=== PATIENT | female | born 1950 | race Caucasian/White ===

== ENCOUNTER 2017-08-27 14:22 | Emergency (ER) | payer MEDICARE ==
--- NOTE | 2017-08-27 15:28 | ED Physician Chart ---
ED Chief Complaint/HPI - Patient Information Date Seen:: 08/27/17 Time Seen:: 15:24 Chief Complaint:: Left leg pain History of Present Illness:: 67 yo female had sudden onset of left buttock and left leg pain today 4 hours prior to ER visit. No numbness or tingling. No urinary or fecal incontinence. No fever. She had history of chronic low back pain. She slept on an air mattress at a friend's house last night. ED Review of Systems - Review of Systems General/Constitutional: No fever Skin: No skin lesions Head: No headache Eyes: No pain ENT: No nasal drainage Neck: Neck pain Cardio Vascular: No chest pain Pulmonary: No SOB GI: No nausea, No vomiting Musculoskeletal: Other (left leg pain) Neurological: No weakness ED Past Medical History - Past Medical History Past Medical History: PUD/GERD, Other (low back pain, neck pain) Social History: Non Smoker, No Alcohol, No Drug Use Surgical History: ED Physical Exam - Physical Examination General/Constitutional: Awake Head: Atraumatic Eyes: PERRL Skin: No skin lesions ENMT: Nasal exam nl Neck: No nuchal rigidity Respiratory: No Wheeze/Rhonchi/Rales Cardio Vascular: RRR, No murmur, gallop, rubs, NL S1 S2 GI: No tenderness/rebounding/guarding Other Extremities comments:: left popliteal tenderness, possible left EHL weakness Neuro/Psych: Alert/oriented, No focal deficits ED Labs/Radiology/EKG Results - Lab Results Results: Laboratory Last Values WBC 5.1 Th/cmm (4.8-10.8) 08/27/17 15:48 RBC 4.53 Mil/cmm (3.80-5.20) 08/27/17 15:48 Hgb 12.7 gm/dL (12-16) 08/27/17 15:48 Hct 39.2 % (41.0-60) L 08/27/17 15:48 MCV 86.5 fl (81-100) 08/27/17 15:48 MCH 27.9 pg (27.0-31.0) 08/27/17 15:48 MCHC Differential 32.3 pg (28.0-36.0) 08/27/17 15:48 RDW 13.2 % (11.5-20.0) 08/27/17 15:48 Plt Count 161 Th/cmm (150-400) 08/27/17 15:48 MPV 8.6 fl 08/27/17 15:48 Neutrophils % 75.6 % (40.0-80.0) 08/27/17 15:48 Lymphocytes % 13.6 % (20.0-50.0) L 08/27/17 15:48 Monocytes % 10.4 % (2.0-10.0) H 08/27/17 15:48 Eosinophils % 0.3 % (0.0-5.0) 08/27/17 15:48 Basophils % 0.1 % (0.0-2.0) 08/27/17 15:48 D-Dimer 950 ng/mL (100-400) H 08/27/17 15:48 Sodium 133 mEq/L (136-145) L 08/27/17 15:48 Potassium 3.9 mEq/L (3.5-5.1) 08/27/17 15:48 Chloride 101 mEq/L (98-107) 08/27/17 15:48 Carbon Dioxide 25.3 mEq/L (21.0-31.0) 08/27/17 15:48 Anion Gap 10.6 (7.0-16.0) 08/27/17 15:48 BUN 18 mg/dL (7-25) 08/27/17 15:48 Creatinine 0.7 mg/dL (0.6-1.2) 08/27/17 15:48 Est GFR ( Amer) > 60.0 ml/min (>90) 08/27/17 15:48 Est GFR (Non-Af Amer) > 60.0 ml/min 08/27/17 15:48 BUN/Creatinine Ratio 25.7 08/27/17 15:48 Glucose 109 mg/dL (70-105) H 08/27/17 15:48 Calcium 8.7 mg/dL (8.6-10.3) 08/27/17 15:48 Total Bilirubin 0.6 mg/dL (0.3-1.0) 08/27/17 15:48 AST 19 U/L (13-39) 08/27/17 15:48 ALT 20 U/L (7-52) 08/27/17 15:48 Alkaline Phosphatase 73 U/L (34-104) 08/27/17 15:48 Total Protein 7.1 gm/dL (6.0-8.3) 08/27/17 15:48 Albumin 4.1 gm/dL (3.7-5.3) 08/27/17 15:48 Globulin 3.0 gm/dL 08/27/17 15:48 Albumin/Globulin Ratio 1.4 (1.0-1.8) 08/27/17 15:48 - Radiology Results Results: LLE u/s: no evidence of DVT Lumbar spine X ray: degenerative narrowing of L5-S1, spondylolisthesis L4 on L5 ED Assessment - Assessment General Assessment: Left lumbar radiculopathy Hyponatremia Dehydration Assessment/Comments:: CBC, CMP, D-dimer LLE u/s ruled out DVT L-spine x ray Morphine Solu-Medrol Flexeril Gabapentin Ibuprofen D/c home Gabapentin 300mg tid #21 Ibuprofen 800mg bid #14 F/u PCP for physical therapy and possible MRI L-spine ED Septic Shock - . Is Septic Shock (SBP<90, OR Lactate>4 mmol\L) present?: No ED Reassessment (Disposition) - Reassessment Reassessment Condition:: Improved - Patient Disposition Discharge/Transfer:: Home ED Discharge Plan - Patient Disposition Admit/Discharge/Transfer: PT DISCHARGED HOME Instructions: Sciatica with [facility]hab[facility]
[2017-08-27] MEDS ORDERED: Morphine Sulfate 2 mg/mL 1mL Syr IV STA (15:33)
[2017-08-27 15:54] LABS: % BASOPHILS 0.1 % (0.0-2.0); % EOSINOPHILS 0.3 % (0.0-5.0); % LYMPHOCYTES 13.6 % (20.0-50.0); % MONOCYTES 10.4 % (2.0-10.0); % NEUTROPHILS 75.6 % (40.0-80.0); HEMATOCRIT 39.2 % (41.0-60); HEMOGLOBIN 12.7 gm/dL (12-16); LYMPHOCYTE ABSOLUTE 0.7 Th/cmm (1.5-3.0); MEAN CELL VOLUME 86.5 fl (81-100); MEAN CORPUSCULAR HEMOGLOBIN 27.9 pg (27.0-31.0); MEAN CORPUSCULAR HGB CONC 32.3 pg (28.0-36.0); MEAN PLATELET VOLUME 8.6 fl; MONOCYTE ABSOLUTE 0.5 Th/cmm (0.3-1.0); NEUTROPHILE ABSOLUTE 3.9 Th/cmm (1.8-8.0); PLATELET COUNT 161 Th/cmm (150-400); RED BLOOD COUNT 4.53 Mil/cmm (3.80-5.20); RED CELL DISTRIBUTION WIDTH 13.2 % (11.5-20.0); WHITE BLOOD COUNT 5.1 Th/cmm (4.8-10.8)
[2017-08-27] MEDS ORDERED: Morphine Sulfate 4 mg/mL 1mL Syr ONE (16:01)
[2017-08-27 16:15] LABS: ALB/GLOB RATIO 1.4 (1.0-1.8); ALBUMIN 4.1 gm/dL (3.7-5.3); ALKALINE PHOSPHATASE 73 U/L (34-104); ANION GAP 10.6 (7.0-16.0); BILIRUBIN,TOTAL 0.6 mg/dL (0.3-1.0); BUN - UREA NITROGEN 18 mg/dL (7-25); CALCIUM SERUM 8.7 mg/dL (8.6-10.3); CARBON DIOXIDE 25.3 mEq/L (21.0-31.0); CHLORIDE 101 mEq/L (98-107); CREATININE - SERUM 0.7 mg/dL (0.6-1.2); GFR AFRICAN-AMERICAN > 60.0 ml/min (>90); GFR NON AFRICAN-AMERICAN > 60.0 ml/min; GLUCOSE 109 mg/dL (70-105); POTASSIUM SERUM 3.9 mEq/L (3.5-5.1); SGOT 19 U/L (13-39); SGPT/ALT 20 U/L (7-52); SODIUM SERUM 133 mEq/L (136-145); TOTAL PROTEIN,SERUM 7.1 gm/dL (6.0-8.3)
[2017-08-27] MEDS ORDERED: Sodium Chloride 0.9% 1,000 ML IV ONE (17:21)
--- NOTE | 2017-08-28 09:37 | Diagnostic Imaging Report ---
Exam: Ultrasound examination left lower extremity HISTORY: DVT. Findings: Real-time ultrasound examination of left lower extremity was performed utilizing color Doppler technique. The study demonstrates normal compressibility and augmentation of deep venous system throughout. IMPRESSION: no evidence of anastomosis left lower extremity.
--- NOTE | 2017-08-28 09:39 | Diagnostic Imaging Report ---
Exam: Lumbosacral spine HISTORY: Left lower extremity pain Findings: Multiple views of lumbar sacral spine reviewed. The study demonstrates degenerative narrowing of the L5-S1 intervertebral disc space. There is evidence of for mild spondylolisthesis of L5 lumbar vertebra without spondylolysis. No prevertebral soft tissue swelling is noted, pedicles intact the posterior elements are normal. IMPRESSION: 1. Degenerative narrowing of the L5-S1 intervertebral disc space 2. There is first degree spondylolisthesis of L5 lumbar vertebra.
== END 2017-08-27 20:15 | disposition home or self-care (01) ==
LOC: ER 14:22
DX: M54.16 Radiculopathy, lumbar region (principal); E86.0 Dehydration; E87.1 Hypo-osmolality and hyponatremia; K21.9 Gastro-esophageal reflux disease without esophagitis; K27.9 Peptic ulcer, site unspecified, unspecified as acute or chronic, without hemorrhage or perforation
CPT/HCPCS: 99285; 93971; 72100; 36415; 85379; 85025; 80053; J2930; J7030; Z7610